=== PATIENT | male | born 1990 | race Caucasian/White ===

== ENCOUNTER 2017-02-12 23:18 | Emergency (ER) | payer OTHER ==
--- NOTE | 2017-02-12 23:27 | EDPHY ---
H & P Time Seen by Provider: 02/12/17 23:23 HPI/ROS: CHIEF COMPLAINT: Found sleeping at the [facility] HISTORY OF PRESENT ILLNESS: 27-year-old male arrives by ambulance after he was found sleeping at the [facility]. He admits to alcohol and MDMA use. He has no complaints of pain or discomfort. Denies trauma. Denies pain. Denies assault. Denies chest pain. Denies dyspnea REVIEW OF SYSTEMS: A ten point review of systems was performed and is negative with the exception of the items mentioned in the HPI PAST MEDICAL/SURGICAL HISTORY: no anticoagulant use, no relevant medical/ surgical history SOCIAL HISTORY: Admits to alcohol and MDMA use PHYSICAL EXAM 1) GENERAL: Well-developed, well-nourished, alert and oriented. Appears to be in no acute distress. Answering questions appropriately. smiling, cooperative 2) HEAD: Normocephalic, atraumatic 3) HEENT: Pupils equal, round, reactive to light bilaterally. Negative Horners. Nasopharynx, oropharynx, clear. No deformity or angulation of nose. No septal hematoma. No rhinorrhea. No oral trauma. Ears bilaterally with normal tympanic membranes. No hemotympanum. No fluid or blood in the external auditory canal. No raccoon eyes. No Sim sign. Teeth are normally aligned with no gross malocclusion, TMJ bilaterally nontender, facial bones nontender including the zygomatic arch, maxilla mandible. 4) NECK: No cervical collar is on. Posterior cervical spine is nontender, no stepoff, no effusion. Full range of motion which does not elicit any midline cervical spine pain, no posterior midline tenderness, no step-off. 5) LUNGS: Clear to auscultation bilaterally, no wheezes, no rhonchi, no retractions. No obvious signs of trauma. No chest wall pain. No flaring, no grunting. Moving symmetrically. No crepitus. 6) HEART: Regular rate and rhythm, 7) ABDOMEN: No guarding, no rebound, no focal tenderness, no peritoneal signs, no signs of trauma, no ecchymosis 8) MUSCULOSKELETAL: Moving all extremities, no focal areas of tenderness, no obvious trauma. 9) BACK:No midline vertebral tenderness, no fluctuance, no step-off, no obvious trauma, no visual or palpable abnormality. 10) SKIN: No laceration. No abrasion DIFFERENTIAL DIAGNOSIS: in no particular include but limited to trauma, polysubstance abuse, acute alcohol abuse Constitutional: Initial Vital Signs Temperature (C) 36.6 C 02/12/17 23:27 Heart Rate 64 02/12/17 23:27 Respiratory Rate 12 02/12/17 23:27 Blood Pressure 142/90 H 02/12/17 23:27 O2 Sat (%) 96 02/12/17 23:27 O2 Delivery Mode Room Air Allergies/Adverse Reactions: Sulfa (Sulfonamide Antibiotics) Allergy (Verified 02/12/17 23:27) Home Medications: Medication Instructions Recorded NK [No Known Home Meds] 02/12/17 Departure - Departure Disposition: Home, Routine, Self-Care Clinical Impression: Alcohol abuse, MDMA abuse Condition: Good Instructions: Polysubstance Abuse (ED) Additional Instructions: Please exercise moderation with alcohol use Referrals: Reynold Biggs, [Medical Doctor] - 1-2 days without fail
[2017-02-12 23:35] VITALS: BP 142/90; PULSE 64; RESP 12; TEMP 97.9; O2SAT 96
== END 2017-02-13 00:10 | disposition home or self-care (01) ==
DX: F19.10 Other psychoactive substance abuse, uncomplicated (principal); F10.10 Alcohol abuse, uncomplicated